=== PATIENT | female | born 1960 | race Hispanic/Latino ===

== ENCOUNTER → 2024-05-17 | Day surgery (SDC) | payer OTHER ==
[~2024-05-17] MED LIST: BUPROPION HCL100 MG PO; HYDROCHLOROTHIA25 MG PO; METFORMIN HCL500 MG PO; PANTOPRAZOLE SO40 MG PO; VENLAFAXINE HCL75 M1 PO
[2024-05-17] MEDS: LACTATED RINGER'S 1,000 ML ONE (08:31)
[2024-05-17 09:58] VITALS: TEMP 97.2
[2024-05-17 10:20] VITALS: BP 130/76; PULSE 71; RESP 18; O2SAT 99
== END | disposition home or self-care (01) ==
LOC: OR 07:31
PROVIDERS: ATTEND Internal Medicine Gastroenterology
DX: K29.70 Gastritis, unspecified, without bleeding (principal); D12.5 Benign neoplasm of sigmoid colon; K31.7 Polyp of stomach and duodenum; K21.9 Gastro-esophageal reflux disease without esophagitis; K20.90 Esophagitis, unspecified without bleeding; K44.9 Diaphragmatic hernia without obstruction or gangrene; K59.00 Constipation, unspecified; Z98.0 Intestinal bypass and anastomosis status; K57.92 Diverticulitis of intestine, part unspecified, without perforation or abscess without bleeding; K64.8 Other hemorrhoids; E11.9 Type 2 diabetes mellitus without complications; M54.2 Cervicalgia; M54.9 Dorsalgia, unspecified; F32.A Depression, unspecified; F41.9 Anxiety disorder, unspecified; Z88.8 Allergy status to other drugs, medicaments and biological substances; Z01.810 Encounter for preprocedural cardiovascular examination; Z79.84 Long term (current) use of oral hypoglycemic drugs; Z79.899 Other long term (current) drug therapy
CPT/HCPCS: 36415; 43239; 43450; 45385; 82948; 93005; J2470; J7121; 45378